=== PATIENT | female | born 1995 | race Caucasian/White ===

== ENCOUNTER 2019-06-20 17:26 | Outpatient (CLI) | payer OTHER | END 2019-06-20 21:25 | disposition home or self-care (01) | LOC: OBT 17:26 → L-D 17:27 → OBT 21:25 | DX: O36.5930 Maternal care for other known or suspected poor fetal growth, third trimester, not applicable or unspecified (principal); Z3A.35 35 weeks gestation of pregnancy | CPT/HCPCS: 76815; 76818 ==

== ENCOUNTER 2019-06-22 12:03 | Outpatient (CLI) | payer OTHER | END 2019-06-22 16:13 | disposition home or self-care (01) | LOC: OBT 12:03 → L-D 12:03 → OBT 16:13 | DX: O47.1 False labor at or after 37 completed weeks of gestation (principal); Z3A.36 36 weeks gestation of pregnancy | CPT/HCPCS: 76818 ==

== ENCOUNTER 2019-06-23 17:58 | Outpatient (CLI) | payer OTHER ==
[2019-06-23 20:54] LABS: ADD UMIC YES; UR ASCORBIC ACID NEGATIVE (NEGATIVE); UR BACTERIA FEW /HPF (NONE SEEN); UR BILIRUBIN (Dip) NEGATIVE (NEGATIVE); UR BLOOD (Dip) NEGATIVE (NEGATIVE); UR CLARITY SLIGHTLY CLOUDY (CLEAR); UR COLOR YELLOW (YELLOW); UR GLUCOSE (Dip) NEGATIVE (NEGATIVE); UR KETONES (Dip) NEGATIVE (NEGATIVE); UR LEUKOCYTE ESTERASE (Dip) 2+ Leu/ul (NEGATIVE); UR MUCUS FEW /HPF (NONE SEEN); UR NITRITE (Dip) NEGATIVE (NEGATIVE); UR RBC 0 /HPF (0-5); UR SPECIFIC GRAVITY (Dip) 1.013 (1.003-1.030); UR SQUAMOUS EPITHELIAL CELL FEW /HPF (FEW); UR TOTAL PROTEIN (Dip) NEGATIVE (NEGATIVE); UR UROBILINOGEN (Dip) NEGATIVE (NEGATIVE); UR WBC 9 /HPF (0-5)
[2019-06-23] MEDS ORDERED: TERBUTALINE 1 ML (21:21)
[2019-06-23] MEDS: TERBUTALINE 1 MG/ML INJ SC ×2 (21:33→23:34)
[2019-06-23] MEDS: LACTATED RINGER'S 1,000 ML IV ×2 (22:00→23:34)
[2019-06-23 23:31] LABS: ADD MAN DIFF? NO
[2019-06-23 23:32] LABS: BASOPHILS % 0.4 % (0.0-2.0); EOSINOPHILS # 0.3 10^3/ul (0.0-0.5); EOSINOPHILS % 4.5 % (0.0-7.0); HEMATOCRIT 38.2 % (37.0-47.0); LYMPHOCYTES # 2.3 10^3/ul (0.8-2.9); MEAN CORPUSCULAR HEMOGLOBIN 29.1 pg (29.0-33.0); MEAN CORPUSCULAR HGB CONC 31.4 g/dl (32.0-37.0); MEAN CORPUSCULAR VOLUME 92.7 fl (82.0-101.0); MEAN PLATELET VOLUME 11.8 fl (7.4-10.4); MONOCYTE # 0.4 10^3/ul (0.3-0.9); MONOCYTES % 6.3 % (0.0-11.0); NEUTROPHIL # 2.6 10^3/ul (1.6-7.5); NEUTROPHILS % 47.6 % (39.0-77.0); PLATELET COUNT 235 10^3/UL (140-415); RED BLOOD COUNT 4.12 10^6/ul (4.20-5.40); RED CELL DISTRIBUTION WIDTH 14.6 % (11.5-14.5)
[2019-06-23 23:32] LABS: WHITE BLOOD COUNT 5.5 10^3/ul (4.8-10.8)
[2019-06-24] MEDS: BETAMET NA PHOS/AC(6 MG/ML) 2 ML INJ SYG IM (00:20)
== END 2019-06-24 00:41 | disposition home or self-care (01) ==
LOC: OBT 17:58 → L-D 18:00
DX: O36.8130 Decreased fetal movements, third trimester, not applicable or unspecified (principal); O26.893 Other specified pregnancy related conditions, third trimester; R10.9 Unspecified abdominal pain; Z3A.36 36 weeks gestation of pregnancy
CPT/HCPCS: 76818; 81001; 85025; 87086; 96360; 96361; 96372

== ENCOUNTER 2019-06-24 20:44 | Outpatient (CLI) | payer OTHER ==
[2019-06-24] MEDS: BETAMET NA PHOS/AC(6 MG/ML) 2 ML INJ SYG IM (21:59)
== END 2019-06-24 22:06 | disposition home or self-care (01) ==
LOC: OBT 20:44 → L-D 20:45 → OBT 22:06
DX: O62.9 Abnormality of forces of labor, unspecified (principal); Z3A.36 36 weeks gestation of pregnancy
CPT/HCPCS: 76818

== ENCOUNTER 2019-07-03 20:50 | Inpatient (IN) | payer OTHER ==
[2019-07-03 22:13] LABS: ADD MAN DIFF? NO
[2019-07-03 22:15] LABS: BASOPHILS % 0.4 % (0.0-2.0); EOSINOPHILS % 0.8 % (0.0-7.0); HEMATOCRIT 35.7 % (37.0-47.0); HEMOGLOBIN 11.7 g/dl (12.0-16.0); LYMPHOCYTES # 1.4 10^3/ul (0.8-2.9); LYMPHOCYTES % 27.2 % (15.0-51.0); MEAN CORPUSCULAR HEMOGLOBIN 29.5 pg (29.0-33.0); MEAN CORPUSCULAR HGB CONC 32.8 g/dl (32.0-37.0); MEAN CORPUSCULAR VOLUME 90.2 fl (82.0-101.0); MEAN PLATELET VOLUME 10.8 fl (7.4-10.4); MONOCYTE # 0.4 10^3/ul (0.3-0.9); MONOCYTES % 6.9 % (0.0-11.0); NEUTROPHIL # 3.3 10^3/ul (1.6-7.5); NEUTROPHILS % 64.3 % (39.0-77.0); PLATELET COUNT 245 10^3/UL (140-415); RED BLOOD COUNT 3.96 10^6/ul (4.20-5.40); RED CELL DISTRIBUTION WIDTH 15.4 % (11.5-14.5)
[2019-07-03 22:15] LABS: WHITE BLOOD COUNT 5.2 10^3/ul (4.8-10.8)
[2019-07-03 22:19] LABS: ADD UMIC NO; UR ASCORBIC ACID NEGATIVE (NEGATIVE); UR BILIRUBIN (Dip) NEGATIVE (NEGATIVE); UR BLOOD (Dip) NEGATIVE (NEGATIVE); UR CLARITY CLEAR (CLEAR); UR COLOR YELLOW (YELLOW); UR GLUCOSE (Dip) NEGATIVE (NEGATIVE); UR KETONES (Dip) NEGATIVE (NEGATIVE); UR LEUKOCYTE ESTERASE (Dip) NEGATIVE Leu/ul (NEGATIVE); UR NITRITE (Dip) NEGATIVE (NEGATIVE); UR SPECIFIC GRAVITY (Dip) 1.008 (1.003-1.030); UR TOTAL PROTEIN (Dip) NEGATIVE (NEGATIVE); UR UROBILINOGEN (Dip) NEGATIVE (NEGATIVE)
[2019-07-03] MEDS ORDERED: IBUPROFEN 600 MG TAB PO (22:30)
[2019-07-03] MEDS ORDERED: OXYTOCIN 30 UNITS/LR 500 ML IV (22:30)
[2019-07-03] MEDS ORDERED: BUTORPHANOL 2 MG INJ IV (22:30)
[2019-07-03] MEDS ORDERED: FENTAnyl 50 MCG/ML VIAL IV (22:30)
[2019-07-03] MEDS ORDERED: LIDOCAINE 1% (MPF) 30 ML INJ INJ (22:30)
[2019-07-03] MEDS ORDERED: MISOPROSTOL 200 MCG TAB PR (22:30)
[2019-07-03] MEDS ORDERED: METHYLERGONOVINE 0.2 MG INJ IM (22:30)
[2019-07-03] MEDS ORDERED: CARBOPROST 250 MCG INJ IM (22:30)
[2019-07-03] MEDS ORDERED: OXYCODONE/ASPIRIN (4.88/325) TAB PO (22:30)
[2019-07-03 22:33] LABS: ALANINE AMINOTRANSFERASE 29 IU/L (13-69); ALBUMIN 3.4 g/dl (3.3-4.9); ALBUMIN/GLOBULIN RATIO 1.13; ALKALINE PHOSPHATASE 206 IU/L (42-121); ANION GAP 7 (5-13); ASPARTATE AMINO TRANSFERASE 26 IU/L (15-46); BILIRUBIN,INDIRECT 0.3 mg/dl (0-1.1); BILIRUBIN,TOTAL 0.3 mg/dl (0.2-1.3); BLOOD UREA NITROGEN 9 mg/dl (7-20); CALCIUM 9.3 mg/dl (8.4-10.2); CARBON DIOXIDE 23 mmol/L (21-31); CHLORIDE 105 mmol/L (97-110); CREATININE 0.54 mg/dl (0.44-1.00); Estimated GFR > 60 mL/min (>60); GLUCOSE 91 mg/dl (70-220); SODIUM 135 mmol/L (135-144); TOTAL PROTEIN 6.4 g/dl (6.1-8.1)
[2019-07-03 22:36] LABS: INR 0.87; PROTIME 11.9 Sec (11.9-14.9); PT RATIO 0.9
[2019-07-03 22:37] LABS: PARTIAL THROMBOPLASTIN TIME 26.2 Sec (23.0-35.0)
[2019-07-03 23:03] LABS: HEPATITIS B SURFACE ANTIGEN NEGATIVE (NEGATIVE)
[2019-07-03] MEDS: LACTATED RINGER'S 1,000 ML IV (23:04)
[2019-07-04] MEDS ORDERED: NALOXONE (0.4 MG/ML) INJ IV
[2019-07-04] MEDS: LACTATED RINGER'S 1,000 ML IV ×4 (00:04→15:47)
[2019-07-04] MEDS ORDERED: FENTAnyl 2MCG/ML-ROPIV 0.2% 100 ML (00:10)
[2019-07-04] MEDS: FENTAnyl 2MCG/ML-ROPIV 0.2% 100 ML BAG EPI ×2 (10:42→14:49)
[2019-07-04] MEDS: OXYTOCIN 30 UNITS/LR 500 ML IV ×3 (10:51→22:52)
[2019-07-04] MEDS ORDERED: MINERAL OIL LIGHT 10 ML VIAL TOP (11:00)
[2019-07-04] MEDS ORDERED: ONDANSETRON 4 MG INJ IV ×2 (19:00)
[2019-07-04] MEDS ORDERED: DIPHENHYDRAMINE 25 MG CAP PO (19:00)
[2019-07-04] MEDS ORDERED: ONDANSETRON 4 MG TAB PO (19:00)
[2019-07-04] MEDS ORDERED: DIBUCAINE 1% 30 GM OINT TOP (19:00)
[2019-07-04] MEDS ORDERED: NA PHOSPHATE/BIPHOS 133 ML ENEMA PR (19:00)
[2019-07-04] MEDS ORDERED: CARBOPROST 250 MCG INJ IM (19:00)
[2019-07-04] MEDS ORDERED: SENNA/DOCUSATE NA (8.6MG/50MG) TAB PO (19:00)
[2019-07-04] MEDS ORDERED: DIPHENHYDRAMINE 50 MG INJ IV ×2 (19:00)
[2019-07-04] MEDS ORDERED: MISOPROSTOL 200 MCG TAB PR (19:00)
[2019-07-04] MEDS ORDERED: HYDROCODONE/APAP (5/325) TAB PO (19:00)
[2019-07-04] MEDS ORDERED: OXYTOCIN 30 UNITS/LR 500 ML IV (19:00)
[2019-07-04] MEDS ORDERED: MAGNESIUM HYDROXIDE 30ML CUP PO (19:00)
[2019-07-04 19:41] LABS: RAPID PLASMA REAGIN NONREACTIVE (NR)
[2019-07-04] MEDS: SENNA/DOCUSATE NA (8.6MG/50MG) TAB PO (21:00)
[2019-07-04] MEDS: BENZOCAINE 20% 56 ML SPRAY TOP (21:39)
[2019-07-04] MEDS: WITCH HAZEL/GLYCERIN PAD PR (21:39)
[2019-07-04] MEDS: LANOLIN HPA 1 PKT TOP (21:39)
[2019-07-04] MEDS: HYDROCODONE/APAP (5/325) TAB PO (21:39)
[2019-07-05] MEDS: IBUPROFEN 600 MG TAB PO ×4 (00:09→17:34)
[2019-07-05] MEDS: LACTATED RINGER'S 1,000 ML IV* ×3 (02:59→18:59)
[2019-07-05] MEDS: LACTATED RINGER'S 1,000 ML IV ×3 (06:01→22:01)
[2019-07-05 08:28] LABS: ADD MAN DIFF? NO
[2019-07-05 08:40] LABS: BASOPHILS % 0.2 % (0.0-2.0); EOSINOPHILS # 0.1 10^3/ul (0.0-0.5); EOSINOPHILS % 0.6 % (0.0-7.0); HEMATOCRIT 36.6 % (37.0-47.0); HEMOGLOBIN 11.6 g/dl (12.0-16.0); LYMPHOCYTES # 1.6 10^3/ul (0.8-2.9); LYMPHOCYTES % 12.9 % (15.0-51.0); MEAN CORPUSCULAR HEMOGLOBIN 28.6 pg (29.0-33.0); MEAN CORPUSCULAR HGB CONC 31.7 g/dl (32.0-37.0); MEAN CORPUSCULAR VOLUME 90.4 fl (82.0-101.0); MEAN PLATELET VOLUME 10.5 fl (7.4-10.4); MONOCYTE # 0.6 10^3/ul (0.3-0.9); NEUTROPHIL # 9.8 10^3/ul (1.6-7.5); NEUTROPHILS % 80.9 % (39.0-77.0); PLATELET COUNT 206 10^3/UL (140-415); RED BLOOD COUNT 4.05 10^6/ul (4.20-5.40); RED CELL DISTRIBUTION WIDTH 15.9 % (11.5-14.5)
[2019-07-05 08:40] LABS: WHITE BLOOD COUNT 12.1 10^3/ul (4.8-10.8)
[2019-07-05] MEDS: SENNA/DOCUSATE NA (8.6MG/50MG) TAB PO ×2 (09:28→21:01)
[2019-07-06] MEDS: IBUPROFEN 600 MG TAB PO ×3 (00:24→11:26)
[2019-07-06] MEDS: VARICELLA VACCINE LIVE/PF 1,350 UNIT/0.5 ML ML SC* (09:00)
[2019-07-06] MEDS: SENNA/DOCUSATE NA (8.6MG/50MG) TAB PO (09:23)
[2019-07-06] MEDS: MEASLES,MUMPS,RUBELLA VACCINE INJ SC* (09:24)
[2019-07-06] MEDS: DIPHTH/TET/ACEL PERTUSS (ADULT) 0.5 ML VIAL IM* (11:27)
== END 2019-07-06 13:55 | disposition home or self-care (01) | DRG 807 ==
LOC: OBT 20:50 → L-D 20:51 → PP1 07-04 21:22 → OBT 21:50 → L-D 21:50
PROC: 10E0XZZ Delivery of Products of Conception, External Approach (ICD-10-PCS; principal; 2019-07-04)
PROC: 0HQ9XZZ Repair Perineum Skin, External Approach (ICD-10-PCS; 2019-07-04)
PROC: 3E033VJ Introduction of Other Hormone into Peripheral Vein, Percutaneous Approach (ICD-10-PCS; 2019-07-04)
DX: O70.0 First degree perineal laceration during delivery (principal); Z37.0 Single live birth; Z3A.38 38 weeks gestation of pregnancy
CPT/HCPCS: 76815; 76818; 80053; 81003; 85025; 85610; 85730; 86592; 86850; 86900; 86901; 87340; 90715; 90716